=== PATIENT | male | born 1985 | race African-American/Black ===

== ENCOUNTER 2018-07-30 03:06 | Emergency (ER) | payer SELFPAY ==
[2018-07-30 03:06] VITALS: BP 140/96; PULSE 76; RESP 18; TEMP 36.4; O2SAT 99; BMI 25.7
--- NOTE | 2018-07-30 03:22 | ED.VISSUMM ---
- ER Visit Summary Date of Service: 07/30/18 Chief Complaint: Back pain History of Present Illness: The patient is a 32 M who presents with back pain. It began about 12 hours ago. He complains of severe sharp lower back pain. This is worse with standing certain movements bending. He also complains of spasms. This is all in his lower back. No history of prior similar symptoms. No fall or injury. No repetitive activity bending or leaning over that he can recall. He denies numbness tingling or radiation of the legs fever abdominal pain urinary retention fecal incontinence IV drug abuse. Physical Examination: Afebrile vitals are normal Moist mucous membranes Heart regular rate and rhythm Lungs are clear Abdomen soft nontender Patient has bilateral paraspinal lumbar tenderness no midline pain 5 out of 5 strength with dorsiflexion, plantarflexion, extensor hallucis longus Metric palpable dorsalis pedis pulses Test Results: Not indicated Emergency Department Course and Treatment: Patient appears to be in significant discomfort. He was given [place] here. I do believe his symptoms are most consistent with a lumbosacral strain. I discussed supportive care and potential benefit from physical therapy and follow-up for further workup if not improving. He was given prescriptions for [place], naproxen, Flexeril. He was discharged. Treatment Plan: [] Disposition: Discharge Impression: Lumbosacral strain This note was generated with [employer] dictation software. It may contain incorrect words, spelling, and punctuation that were not noted in review of the chart prior to signing ED Disposition - Plan for ED Patient: Referrals: Care Physician,No Primary [Primary Care Provider] -
--- NOTE | 2018-07-30 03:25 | ED.DCSUM_ITS ---
- ER Visit Summary Date of Service: 07/30/18 Chief Complaint: Back pain History of Present Illness: The patient is a 32 M who presents with back pain. It began about 12 hours ago. He complains of severe sharp lower back pain. This is worse with standing certain movements bending. He also complains of sp asms. This is all in his lower back. No history of prior similar symptoms. No fall or injury. No repetitive activity bending or leaning over that he can recall. He denies numbness tingling or radiation of the legs fever abdominal pain urinary retention fecal incontinence IV drug abuse. Physical Examination: Afebrile vitals are normal Moist mucous membranes Heart regular rate and rhythm Lungs are clear Abdomen soft nontender Patient has bilateral paraspinal lumbar tenderness no midline pain 5 out of 5 strength with dorsiflexion, plantarflexion, extensor hallucis longus Metric palpable dorsalis pedis pulses Test Results: Not indicated Emergency Department Course and Treatment: Patient appears to be in significant discomfort. He was given [place] here. I do believe his symptoms are most consistent with a lumbosacral strain. I discussed supportive care and potential benefit from physical therapy and follow-up for further workup if not improving. He was given prescriptions for [place], naproxen, Flexeril. He was discharged. Treatment Plan: [] Disposition: Discharge Impression: Lumbosacral strain This note was generated with [employer] dictation software. It may contain incorrect words, spelling, and punctuation that were not noted in review of the chart prior to signing ED Disposition - Plan for ED Patient: Referrals: Care Physician,No Primary [Primary Care Provider] -
--- NOTE | 2018-07-30 03:26 | DCINST.ED_ITS ---
ED Disposition - Plan for ED Patient: Instructions: ED Sprain Strain Lumbar Prescriptions: Hydrocodone Bitart/Apap 5-325 [[place] 5MG-325MG] 1 tab PO Q6H PRN PRN 3 Days #10 tab PRN Reason: Pain Naproxen [Naprosyn] 500 mg PO BID #20 tab Cyclobenzaprine [Flexeril] 10 mg PO TID PRN #20 tab PRN Reason: Muscle Spasm Referrals: Care Physician,No Primary [Primary Care Provider] - Jose Mcneil MD [NON-STAFF] -
[2018-07-30] MEDS: HYDROcodone Bitartrate/Apap 5/325 Tablet PO (03:43)
[2018-07-30 03:49] VITALS: BP 110/72; PULSE 77; RESP 16; O2SAT 98
== END 2018-07-30 03:53 | disposition home or self-care (01) ==
PROVIDERS: Emergency Provider Emergency Medicine
DX: S39.012A Strain of muscle, fascia and tendon of lower back, initial encounter (principal); X58.XXXA Exposure to other specified factors, initial encounter
CPT/HCPCS: 99282

== ENCOUNTER 2019-12-20 11:15 | Emergency (ER) | payer SELFPAY ==
[2019-12-20 11:18] VITALS: BP 120/77; PULSE 88; RESP 17; TEMP 36.7; O2SAT 98; BMI 23.4
--- NOTE | 2019-12-20 11:31 | RAD_ITS ---
STUDY: X-RAY - PELVIS AND LEFT HIP REASON FOR EXAM: Male, 34 years old. FELL 4 DAYS AGO, LANDED ON HIP TECHNIQUE: 3 views of the pelvis and hip. COMPARISON: None. FINDINGS: There is a non-specific bowel gas pattern. Normal visualized soft tissue structures. Normal bilateral iliac wings, sacroiliac joints and visualized sacrum. Normal bilateral superior and inferior pubic rami. Normal pubic symphysis. Normal bilateral ischial tuberosities. Normal visualized femoral head. Normal acetabulum. Normal hip joint. RAD/HIP, UNI W/ Pelvis 2-3 Views IMPRESSION: Normal x-ray examination of the pelvis and hip. Electronically Signed: Elroy Carreno DO at 12:15 EDT Tel [phone], Service support ,
--- NOTE | 2019-12-20 11:37 | ED.VIS.LOWEX ---
History of Present Illness Informant: Patient Occurred: Days - 4 days ago Mechanism/Context: Fall Onset: Days - 4 days ago Context: Sudden Onset Timing: Continuous Quality of Pain: Sharp Location: Left hip Current Severity: Moderate Maximum Severity: Severe Worsened by: Movement and walking Relieved by: Nothing Associated Symptoms: Negative for: Parasthesia, Weakness, Loss of Funtion Narrative: Patient fell onto his left hip taking out the trash 4 days ago and is having left hip pain. It is mild at rest but worse with ambulation. No back pain. He did not hit his head lose consciousness and he had no prodromal symptoms of his mechanical fall. He states that he has been diagnosed with arthritis in his hip. No surgeries. He denies IV drug abuse. No weakness no numbness no paresthesias and he has been urinating normally no constipation Tetanus Immunization: Unknown Prior similar symptoms: No Recent Illness/Hospitalization: No <Luis Fraga - Last Filed: 12/20/19 12:22> <Kyara Elder - Last Filed: 12/21/19 00:39> Chief Complaint: Fall Past Medical History Prior records reviewed: Yes Past Medical History: None Surgical History: no surgical history Lives: With Family Smoking Status: Current every day smoker Alcohol: None Drugs: None <Luis Fraga - Last Filed: 12/20/19 12:22> <Kyara Elder - Last Filed: 12/21/19 00:39> - Allergies and Home Meds Allergies/Adverse Reactions: Allergies No Known Allergies Allergy (Verified 12/20/19 11:17) Primary Care Physician: Sage Leroy MD [STAFF PHYSICIAN] - 10-14 Days if not better Review of Systems All systems negative except as indicated General: Denies: Chills, Fever, Sweats Eyes: Denies: Visual changes - bilaterally, Diplopia ENT: Denies: Rhinorrhea, Sore throat Cardiovascular: Denies: Chest pain, Palpitations Respiratory: Denies: Dyspnea, Cough, Dyspnea on exertion Gastrointestinal: Denies: Abdominal pain, Nausea, Vomiting, Diarrhea, Melena, Hematochezia Genitourinary: Denies: Dysuria, Hematuria, Frequency Musculoskeletal: Reports: Extremity Pain. Denies: Myalgias, Arthralgias, Neck pain, Back pain, Swelling Skin: Denies: Rash, Wounds Neurological: Denies: Headache, Weakness, Numbness <Luis Fraga - Last Filed: 12/20/19 12:22> Physical Exam Vital Signs/Narrative: Vital Signs Temp Pulse Resp BP Pulse Ox 12/20/19 11:18 98.0 F 88 17 120/77 98 Inital Vital Signs reviewed: Yes - Extremity Exam Left Hip: - - Normal inspection. No bruising. Skin intact. No swelling. No erythema. Normal active range of motion. He has bony tenderness laterally. He is neurovascular intact distally. General: Well nourished, Well developed Head: Normocephalic, Atraumatic Eyes: Perrl, EOMI ENT: No Trauma, Moist Mucous Membranes Neck: Nontender, Full ROM Cardiovascular: Regular rate, Regular rhythm, No murmurs Respiratory: No distress, CTA bilaterally, Chest nontender Abdomen: Soft, Nontender, Nondistended, Normal bowel sounds Back: Nontender Skin: Normal color, No rash Neurological: Alert, Oriented x3, Cranial nerves II-XII grossly intact, Normal Strength, Normal Sensation Psychological: Normal affect <Luis Fraga - Last Filed: 12/20/19 12:22> Diagnostic/Tx/Re-eval - Medical Decision Making Patient declined analgesia in the emergency department. X-ray left hip unremarkable. Patient ambulatory. He declines analgesia I will prescribe Naprosyn he has Tylenol at home advised him to rest and ice and he was given a note for work and advised to return for worsening symptoms otherwise follow-up with his primary care physician. <Luis Fraga - Last Filed: 12/20/19 12:22> - Medical Decision Making I have personally performed a face to face assessment and have reviewed the [employer]/PA note. My croft findings include: 34 year old male presenting with left hip pain after mechanical fall. Left hip xray shows no acute process. Advised to follow up with PCP, advised to return to the ED for worsening complaints. <Kyara Elder - Last Filed: 12/21/19 00:39> ED Disposition <Luis Fraga - Last Filed: 12/20/19 12:22> <Kyara Elder - Last Filed: 12/21/19 00:39> - Plan for ED Patient: Disposition: Home or Assisted Living Diagnosis: Contusion of left hip, Fall Instructions: ED CONTUSION Hip Prescriptions: Naproxen [Naprosyn] 500 mg PO BID #14 tab Prescription Printed Referrals: Sage Leroy MD [STAFF PHYSICIAN] - 10-14 Days if not better
== END 2019-12-20 12:36 | disposition home or self-care (01) ==
PROVIDERS: Emergency Provider Physician Assistant Medical
DX: S70.02XA Contusion of left hip, initial encounter (principal); M16.12 Unilateral primary osteoarthritis, left hip; W19.XXXA Unspecified fall, initial encounter; Y93.9 Activity, unspecified; Y92.9 Unspecified place or not applicable; F17.200 Nicotine dependence, unspecified, uncomplicated
CPT/HCPCS: 73502; 99282

== ENCOUNTER 2021-01-11 22:41 | Emergency (ER) | payer SELFPAY ==
[2021-01-11 22:42] VITALS: BP 127/62; PULSE 74; RESP 15; TEMP 36.4; O2SAT 98; BMI 22.4
--- NOTE | 2021-01-11 23:15 | ED.VIS.BACK ---
HPI History of Present Illness Chief Complaint: Back Informant: patient Narrative Narrative: 35-year-old male presenting with left lower back pain. Patient states he went to stand up from the couch yesterday and had pain in his left lower back. He states the pain occasionally radiates to his left leg. Denies bowel or bladder incontinence. He is able to ambulate with pain. Denies fever. Denies IV drug use. He tried naproxen at home. Prior similar symptoms: Yes Recent Illness/Hospitalization: No PFSH PFSH Home Medications cyclobenzaprine 10 mg PO TID PRN #20 tablet 01/11/21 [Rx Last Taken Unknown] naproxen 500 mg PO BID PRN #20 tab 01/11/21 [Rx Last Taken Unknown] Allergy/AdvReac Type Severity Reaction Status Date / Time No Known Allergies Allergy Verified 01/11/21 22:42 Social History Smoking Status: Current every day smoker tobacco type: cigarettes ROS ROS ED Constitutional Constitutional ED: Denies fever(s) Eyes Eyes: Denies change in vision ENT ENT ED: Denies rhinorrhea or sore throat Cardiovascular Cardiovascular: Denies chest pain or palpitations Respiratory/Chest Respiratory/Chest: Denies cough or dyspnea Gastrointestinal Gastrointestinal: Denies abdominal pain, diarrhea, nausea or vomiting Genitourinary Genitourinary ED: Denies dysuria Musculoskeletal Musculoskeletal: Reports back pain Integumentary Denies rash Neurologic Neurologic: Denies headache(s) Psychiatric Psychiatric: Denies suicidal thoughts EXAM Physical Exam Const Vital Signs: 01/11/21 22:42 Temperature 97.5 F L Temperature Source Temporal Pulse Rate 74 Respiratory Rate 15 Blood Pressure 127/62 H Blood Pressure Mean 83 Pulse Ox 98 Oxygen Delivery Method Room Air Positive well nourished and well developed General Appearance ED: well developed HEENT Reports normocephalic and head/scalp atraumatic Eyes PERRL and EOMs intact bilaterally Neck supple General: Negative for tenderness Chest Wall inspection of chest normal Resp normal respiratory effort and clear to auscultation bilaterally Cardio regular rate and regular rhythm GI Palpation: soft no CVA tenderness Back/Spine normal to inspection Back/Spine Narrative: Left paraspinal lumbar muscle tenderness. Straight leg raise negative bilaterally. Extremity normal to inspection Neuro oriented x3 and no sensory deficits noted Sensorium / Orientation: alert Motor Exam: strength 5/5 throughout Psych mental status grossly normal MDM MDM MDM Narrative Medical decision making narrative: Patient was given Toradol, Norflex IM. He had no direct trauma, I do not feel x-rays are indicated at this time. Advised to follow-up with primary care physician. Advised return to the ED for worsening complaints. Discharge Plan Triage Chief Complaint: Back ED Provider: Kyara Elder Dx/Rx/DC Orders Clinical Impression: Strain, lumbosacral Instructions: ED Back Sprain/Strain Prescriptions: New cyclobenzaprine [cyclobenzaprine] 10 MG tablet 10 mg PO TID PRN (Reason: Muscle Spasm) Qty: 20 RF: 0 naproxen 500 MG tablet 500 mg PO BID PRN Qty: 20 RF: 0 Primary Care Provider: Care Physician,No Primary Referrals: Vinay Leblanc MD [NON-STAFF] - Care Physician,No Primary [Primary Care Provider] - Disposition Disposition: Home, Self Care
[2021-01-11] MEDS: Ketorolac 60 MG/2 ML Vial IM (23:29)
[2021-01-11] MEDS: Orphenadrine 60 MG/2 ML Ampul IM (23:30)
== END 2021-01-11 23:42 | disposition home or self-care (01) ==
LOC: ED 23:34
PROVIDERS: Emergency Provider Emergency Medicine
DX: S39.012A Strain of muscle, fascia and tendon of lower back, initial encounter (principal); F17.210 Nicotine dependence, cigarettes, uncomplicated; X58.XXXA Exposure to other specified factors, initial encounter
CPT/HCPCS: 96372; 99282

== ENCOUNTER 2023-10-27 01:47 | Emergency (ER) | payer SELFPAY ==
[2023-10-27 01:48] VITALS: BP 133/90; PULSE 113; RESP 18; TEMP 36.3; O2SAT 98; BMI 23.7
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
[2023-10-27] MEDS: Lidocaine/Epi/Tetracaine 50 ML 1 APPLIC TOPICAL (02:43)
[2023-10-27 03:25] VITALS: BP 145/76; PULSE 98; RESP 18; TEMP 36.4; O2SAT 98
== END 2023-10-27 03:37 | disposition home or self-care (01) ==
PROVIDERS: Emergency Provider Emergency Medicine; Visit Provider Emergency Medicine
DX: S41.011A Laceration without foreign body of right shoulder, initial encounter (principal); F10.129 Alcohol abuse with intoxication, unspecified; F17.210 Nicotine dependence, cigarettes, uncomplicated; X58.XXXA Exposure to other specified factors, initial encounter
CPT/HCPCS: 99283; A4216

== ENCOUNTER → 2023-10-27 | Emergency (ER) | payer SELFPAY ==
[2023-10-27 03:56] LABS: HIV - WCH Non-Reactive (Nonreactive); Hepatitis B Surface Antibody Reactive; Hepatitis B Surface Antigen Non-Reactive (Nonreactive); Hepatitis C Antibody Non-Reactive (Nonreactive)
[2023-10-28 10:07] LABS: Hepatitis B Core Ab Total Negative (Negative)
== END | disposition home or self-care (01) ==
LOC: ED 02:19
PROVIDERS: Emergency Medicine
DX: R69 Illness, unspecified (principal)
CPT/HCPCS: 86703; 86704; 86706; 86803; 87340

== ENCOUNTER 2023-11-05 15:45 | Emergency (ER) | payer SELFPAY ==
[2023-11-05 15:46] VITALS: BP 141/101; PULSE 82; RESP 16; TEMP 36.6; O2SAT 99; BMI 23.6
--- NOTE | 2023-11-05 16:38 | EX.ED.DYSGE1 ---
HPI History of Present Illness Chief Complaint: Suture Remv Narrative Narrative: 38-year-old male presents for suture removal from his right shoulder. He sustained an injury approximately 9 days ago to 10 days ago. He had sutures inserted into his right shoulder, some Vicryl and some nonabsorbable. He would like the nonabsorbable sutures removed. He denies any fevers or chills or any problems with wound healing. He states one of the sutures may have fallen out, but he has not had any bleeding or purulent drainage. No redness to the area. PFSH PFS Medical History Osteomyelitis Home Medications NK 10/27/23 [History Last Taken Unknown] Allergy/AdvReac Type Severity Reaction Status Date / Time No Known Allergies Allergy Verified 11/05/23 15:47 Social History Smoking Status: Current every day smoker tobacco type: cigarettes ROS ROS ED ROS Narrative No fevers or chills, no wound dehiscence, only 1 suture fell out. No purulent drainage. EXAM Physical Exam Narrative Exam Narrative: Afebrile. Vital signs noted. Positive nonabsorbable sutures of Ethilon in right shoulder along with various areas with Vicryl sutures. No surrounding erythema, no fluctuance, no purulent drainage. Const Vital Signs: 11/05/23 15:46 Temperature 98 F Temperature Source Temporal Pulse Rate 82 Respiratory Rate 16 Blood Pressure 141/101 H Blood Pressure Mean 114 Pulse Ox 99 Oxygen Delivery Method Room Air MDM MDM MDM Narrative Medical decision making narrative: I reviewed the patient's prior records. He had total of 10 nonabsorbable sutures inserted, some being running sutures and the other being simple interrupted. He had 11 additional sutures using Vicryl. I removed the nonabsorbable sutures in the 10 cm wound to his right shoulder. There are some broken strands of Vicryl. He did not want these removed. At this point in time, as there is no evidence for infection I do not feel he requires further antibiotics. I feel he can be discharged home with follow-up to her primary care provider. Return instructions to the emergency department were reviewed. Patient and agreeable to the plan. Disposition is discharged in stable condition. Discharge Plan Triage Chief Complaint: Suture Remv ED Provider: Esa Gracia Dx/Rx/DC Orders Clinical Impression: Encounter for removal of sutures Instructions: Sutr or Stap Removal Prescriptions: No Action NK Primary Care Provider: Care Physician,No Primary Referrals: Nick Johnson MD [Med Staff - Active Staff] - As Needed Care Physician,No Primary [Primary Care Provider] - Disposition Disposition: Home, Self Care
[2023-11-05 16:59] VITALS: BP 124/63; PULSE 72; RESP 15; TEMP 36.4; O2SAT 99
== END 2023-11-05 17:02 | disposition home or self-care (01) ==
LOC: ED 16:51
PROVIDERS: Emergency Provider Emergency Medicine; Visit Provider Emergency Medicine
DX: Z48.02 Encounter for removal of sutures (principal); F17.210 Nicotine dependence, cigarettes, uncomplicated
CPT/HCPCS: 99282